=== PATIENT | male | born 1975 | race Caucasian/White ===

== ENCOUNTER → 2016-11-05 | Outpatient (CLI) | payer BC ==
--- NOTE | 2016-11-05 13:54 | EST ---
DATE OF SERVICE: 11/05/2016 AGE: 41Y SEX: M HT: 67" WT: 177 lbs. Protocol Sav: X Other: Stage: IV Dur. of Exercise: 10 minutes *Heart Rate Blood Pressure *Rest: 83 Rest: 119/78 * *Max. Achieved: 162 Maximum BP: 157/76 85% PMHR: 150 100% PMHR: 177 *METS: 10.1 INDICATION OF THE STUDY: Chest pain. MEDICATIONS: STRESS DATA: Pretesting physical examination showed the heart rate of 83, pressure is 119/78 mmHg. Baseline EKG showed sinus rhythm. The patient exercised on the treadmill according to Sav protocol for a total of 10 minutes and achieved 10.1 METs. Max heart rate was 162, which is about 92% of maximum predicted heart rate. Maximum blood pressure was 157/76 mmHg. Clinically the patient did not have any symptoms and the EKG did not show any significant ST or T wave abnormalities consistent with ischemia. CONCLUSION: 1. Good exercise capacity. 2. Normal EKG in response to exercise. 3. Essentially normal stress test the patient.
== END | disposition home or self-care (01) ==
LOC: RADNMMAIN 10:32
PROVIDERS: ATTEND Family Medicine
DX: Z09 Encounter for follow-up examination after completed treatment for conditions other than malignant neoplasm (principal); Z82.49 Family history of ischemic heart disease and other diseases of the circulatory system
CPT/HCPCS: 93017

== ENCOUNTER → 2023-12-30 | Day surgery (SDC) | payer BC ==
[2023-12-29 12:17] VITALS: BMI 29.7
[~2023-12-30] MED LIST: PROPOFOL 10 MG/ML 20 ML VIAL IV ONE
[2023-12-30 13:22] LABS: Glucose,Whole Blood 110 mg/dL (70-110)
[2023-12-30] MEDS: LACTATED RINGERS 1,000 ML IV SCH (13:23)
[2023-12-30 13:39] VITALS: RESP 16; TEMP 97
--- NOTE | 2023-12-30 14:22 | P.PCN ---
Date of Procedure: 12/30/23 Procedure(s) Performed: BRIEF HISTORY: Patient is a 48-year-old pleasant white male scheduled for an elective colonoscopy as a part of Screening for colon cancer. PROCEDURE PERFORMED: Colonoscopy. PREOPERATIVE DIAGNOSIS: Screening for colon cancer IV sedation per Anesthesia. PROCEDURE: After informed consent was obtained, the patient, was brought into the endoscopy unit. IV sedation was administered by Anesthesia under continuous monitoring. Digital rectal examination was normal. Initially the Olympus CF-160 flexible video colonoscope was then inserted in the rectum, gradually advanced into the cecum without any difficulty. Careful examination was performed as the scope was gradually being withdrawn. Ileocecal valve and the appendiceal orifice were visualized and appeared normal. Prep was excellent. Mucosa of the cecum, ascending colon, transverse colon, descending colon, sigmoid colon, and rectum appeared normal. Retroflexion was performed in the rectum and no lesions were seen. The patient tolerated the procedure well. IMPRESSION: Normal-appearing colon from rectum to cecum with no evidence of colorectal neoplasia. RECOMMENDATIONS: Findings of this examination were discussed with the patient As well as his family. He was advised to have a repeat screening colonoscopy in 10 years].
[2023-12-30 15:02] VITALS: BP 120/74; PULSE 62
== END ==
LOC: ORWHC2ENDO 11:58
PROVIDERS: ATTEND Internal Medicine Gastroenterology
DX: Z12.11 Encounter for screening for malignant neoplasm of colon (principal); I10 Essential (primary) hypertension; E78.5 Hyperlipidemia, unspecified; E11.9 Type 2 diabetes mellitus without complications; Z79.84 Long term (current) use of oral hypoglycemic drugs; Z79.899 Other long term (current) drug therapy
CPT/HCPCS: 45378; J2704